=== PATIENT | female | born 1985 | race Caucasian/White ===

== ENCOUNTER 2020-09-11 19:19 | Emergency (ER) | payer SELFPAY ==
[~2020-09-11] VITALS: Ht 162.6 cm; Wt 86.3 kg
[2020-09-11] MEDS ORDERED: FAMO-63 PO (20:01)
[2020-09-11] MEDS ORDERED: TRAM-48 PO (20:13)
--- NOTE | 2020-09-11 20:13 | PHYS DOC ---
General Adult EDM: Chief Complaint: FOOT INJURY PAIN HPI: HPI: Patient is a 34 year old female presents with a chief complaint of left foot and ankle pain. Patient injured her left foot and ankle when she twisted it while walking. Patient denies any other injuries. Patient arrived by private vehicle. She is in no acute distress on exam there is swelling noted along the medial malleolus and the top of the patient's foot. Review of Systems: Review of Systems: Constitutional: Denies fever or chills. [] Eyes: Denies change in visual acuity. [] HENT: Denies nasal congestion or sore throat. [] Respiratory: Denies cough or shortness of breath. [] Cardiovascular: Denies chest pain or edema. [] GI: Denies abdominal pain, nausea, vomiting, bloody stools or diarrhea. [] : Denies dysuria. [] Musculoskeletal: Positive extremity pain Integument: Denies rash. [] Neurologic: Denies headache, focal weakness or sensory changes. [] Endocrine: Denies polyuria or polydipsia. [] Lymphatic: Denies swollen glands. [] Psychiatric: Denies depression or anxiety. [] Heart Score: C/O Chest Pain: N/A Risk Factors: Risk Factors: DM, Current or recent (<one month) smoker, HTN, HLP, family history of CAD, obesity. Risk Scores: Score 0 - 3: 2.5% MACE over next 6 weeks - Discharge Home Score 4 - 6: 20.3% MACE over next 6 weeks - Admit for Clinical Observation Score 7 - 10: 72.7% MACE over next 6 weeks - Early Invasive Strategies Current Medications: Current Medications Medications (Trade) Dose Ordered Sig/[facility] Start Time Stop Time Status Last Admin Dose Admin Ibuprofen (Motrin) 600 mg 1X ONCE 09/11/20 20:30 09/11/20 20:31 Allergies: Allergies: Allergies Coded Allergies Type Severity Reaction Last Updated Verified No Known Drug Allergies 09/11/20 No Physical Exam: PE: General: alert, no acute distress. Skin: warm, dry and intact. Head:: Normocephalic, atraumatic. Neck: Trachea midline. Eyes: EOMI, Normal conjunctiva, No drainage CARDIOVASCULAR: Regular rate and rhythm RESPIRATORY: No respiratory distress Back: Full range of motion. MUSCULOSKELETAL: Full range of motion of bilateral upper and right extremities.--Left ankle swelling along the medial malleolus top of the foot is also swollen. Patient has full range of motion with pain. There is no deformities noted palpable pulses. GASTROINTESTINAL: Abdomen soft without rebound or guarding. NEUROLOGICAL: Alert and noted to person, place and time. No neurological deficits observed Psychiatric: Cooperative. Normal judgment EKG: EKG: [] Radiology/Procedures: Radiology/Procedures: [] Impression: wet read foot and ankle no acute fracture Course & Med Decision Making: Course & Med Decision Making Pertinent Labs and Imaging studies reviewed. (See chart for details) [] Dragon Disclaimer: Dragon Disclaimer: This electronic medical record was generated, in whole or in part, using a voice recognition dictation system. Departure Departure Impression: Primary Impression: Ankle sprain Additional Impression: Foot sprain Disposition: 01 HOME / SELF CARE / HOMELESS Condition: STABLE Referrals: NO PCP (PCP) PHOEBE AWY DO Patient Instructions: Ankle Sprain, Acute, with Phase I Rehab-SportsMed, Foot Sprain Scripts Tramadol Hcl (ULTRAM) 50 Mg Tablet 1 TAB PO PRN Q6HRS PRN for pain MDD 4 Tablet(s) for 7 Days, #20 TAB 0 Refills Prov: IMELDA PATEL DO 09/11/20 IMELDA PATEL DO September 11, 2020 20:13
[2020-09-11] MEDS ORDERED: IBUPROFEN 200 MG TABLET. PO ONE (20:30)
[2020-09-11 21:17] VITALS: BP 118/76
--- NOTE | 2020-09-11 21:18 | RAD ---
XR EXAM OF ANKLE_LEFT 3V, XR FOOT_LEFT 3 VIEWS History: Reason: pain after falling down step / Spl. Instructions: / History: Technique: 3 views left ankle and 3 views left foot Comparison: None. Findings: Normal alignment of the ankle. No fracture. Ankle soft tissue swelling. Tiny plantar calcaneal spur. Normal alignment of the foot. No fracture. Impression: 1. No acute osseous abnormality. 2. Ankle soft tissue swelling. Electronically signed by: Noman Moon DO (09/11/2020 9:15 PM) [facility]
== END 2020-09-11 21:17 | disposition home or self-care (01) ==
LOC: ER 19:19
DX: S93.402A Sprain of unspecified ligament of left ankle, initial encounter (principal); S93.602A Unspecified sprain of left foot, initial encounter; X50.9XXA Other and unspecified overexertion or strenuous movements or postures, initial encounter; Y93.01 Activity, walking, marching and hiking; Y92.89 Other specified places as the place of occurrence of the external cause; Y99.8 Other external cause status
CPT/HCPCS: 73610; 73630; 99284

== ENCOUNTER 2020-10-18 19:54 | Emergency (ER) | payer BC ==
[~2020-10-18] VITALS: Ht 162.6 cm; Wt 90.1 kg
[~2020-10-18 19:54] MED LIST: FAMO-63 PO; TRAM-48 PO
[2020-10-18 20:42] VITALS: BP 137/89
[2020-10-18] MEDS ORDERED: CEPH500T PO (21:17)
[2020-10-18] MEDS ORDERED: BACI3.5O8 TOP (21:17)
[2020-10-18] MEDS ORDERED: HYDR-2761 PO (21:17)
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
[2020-10-18] MEDS ORDERED: DIPH,PERTUSS(ACELL),TET VAC/PF 0.5 ML SYRINGE. VAX IM ONE (22:00)
== END 2020-10-18 21:30 | disposition home or self-care (01) ==
LOC: ER 19:54
DX: T22.211A Burn of second degree of right forearm, initial encounter (principal); K21.9 Gastro-esophageal reflux disease without esophagitis; F17.200 Nicotine dependence, unspecified, uncomplicated; X08.8XXA Exposure to other specified smoke, fire and flames, initial encounter; Y93.89 Activity, other specified; Y92.89 Other specified places as the place of occurrence of the external cause; Y99.8 Other external cause status
CPT/HCPCS: 90471; 90715; 99283-25

== ENCOUNTER 2020-11-27 15:27 | Emergency (ER) | payer BC ==
[~2020-11-27] VITALS: Ht 162.6 cm; Wt 90.0 kg
[~2020-11-27 15:27] MED LIST changes: +BACI3.5O8 TOP; +CEPH500T PO; +HYDR-2761 PO
--- NOTE | 2020-11-27 17:03 | RAD ---
EXAM: CHEST ONE VIEW. HISTORY: Chest pain. COMPARISON: None. FINDINGS: A frontal view of the chest is obtained. There is a small focal infiltrate in the right base. There is no pneumothorax or pleural effusion. Th e heart is not enlarged. IMPRESSION: 1. Focal infiltrate in the right base consistent with pneumonia. Follow-up to resolution is recommend ed. Electronically signed by: Virgil Cool MD (11/27/2020 5:01 PM) [id number]
--- NOTE | 2020-11-27 18:51 | EKG ---
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
[2020-11-27] MEDS ORDERED: LIDOCAINE 1% PF 2 ML VIAL. INJ ONE (19:30)
[2020-11-27] MEDS ORDERED: cefTRIAXone IM 1 GM VIAL IM ONE (19:30)
[2020-11-27] MEDS ORDERED: AMOX1TAB61 PO (19:52)
[2020-11-27] MEDS ORDERED: PRED50TA PO (19:52)
[2020-11-27] MEDS ORDERED: ALBU2.5V8 IH (19:52)
--- NOTE | 2020-11-27 19:52 | PHYS DOC ---
Past Medical History Past Medical History: GERD (MARJKayleenRUBINA Ozzy SCIENCE SPECIALIST) Past Surgical History: Cholecystectomy, Tubal ligation (JESURUBINA Ozzy SCIENCE SPECIALIST) Smoking Status: Current Every Day Smoker Alcohol Use: Occasionally (JESURUBINA Ozzy SCIENCE SPECIALIST) General Adult EDM: Chief Complaint: CHEST PAIN HPI: HPI: Patient is a 35 year old female with history of asthma who presents to the ED today reporting she was diagnosed with COVID-19 on November 22, 2020, she states she has had shortness of breath, cough since 11/21/2020 with chest pressure last week denies any chest pain right or chest pressure. She states she just wants to be checked out to make sure she is okay. (RUBINA NAILS Ozzy SCIENCE SPECIALIST) Review of Systems: Review of Systems: Constitutional: Denies fever or chills. [] Eyes: Denies change in visual acuity. [] HENT: Denies nasal congestion or sore throat. [] Respiratory: Reports cough, denies shortness of breath. [] Cardiovascular: Reports chest pressure, denies chest pressure today, denies chest pain or edema. [] GI: Denies abdominal pain, nausea, vomiting, bloody stools or diarrhea. [] : Denies dysuria. [] Musculoskeletal: Denies back pain or joint pain. [] Integument: Denies rash. [] Neurologic: Denies headache, focal weakness or sensory changes. [] Psychiatric: Denies depression or anxiety. [] (RUBINA NAISL Ozzy SCIENCE SPECIALIST) Heart Score: C/O Chest Pain: N/A Risk Factors: Risk Factors: DM, Current or recent (<one month) smoker, HTN, HLP, family history of CAD, obesity. Risk Scores: Score 0 - 3: 2.5% MACE over next 6 weeks - Discharge Home Score 4 - 6: 20.3% MACE over next 6 weeks - Admit for Clinical Observation Score 7 - 10: 72.7% MACE over next 6 weeks - Early Invasive Strategies (MARJRUBINA Beyer SCIENCE SPECIALIST) Current Medications: Current Medications Medications (Trade) Dose Ordered Sig/[facility] Start Time Stop Time Status Last Admin Dose Admin Ceftriaxone Sodium (Rocephin Im) 1 gm 1X ONCE 11/27/20 19:30 11/27/20 19:31 DC Lidocaine HCl (Xylocaine-Mpf 1% 2ml Vial) 2 ml 1X ONCE 11/27/20 19:30 11/27/20 19:31 DC (RUBINA NAILS SCIENCE SPECIALIST) Allergies: Allergies: Allergies Coded Allergies Type Severity Reaction Last Updated Verified No Known Drug Allergies 09/11/20 No (RUBINA NAILS SCIENCE SPECIALIST) Physical Exam: PE: Constitutional: Well developed, well nourished, no acute distress, non-toxic appearance. [] HENT: Normocephalic, atraumatic, bilateral external ears normal, oropharynx moist, no oral exudates, nose normal. [] Eyes: PERRLA, EOMI, conjunctiva normal, no discharge. [] Neck: Normal range of motion, no tenderness, supple, no stridor. [] Cardiovascular:Heart rate regular rhythm Lungs & Thorax: Diminished posteriorly Abdomen: Bowel sounds normal, soft, no tenderness, no masses, no pulsatile masses. [] Skin: Warm, dry, no erythema, no rash. [] Back: No tenderness, no CVA tenderness. [] Extremities: No tenderness, no cyanosis, no clubbing, ROM intact, no edema. [] Neurologic: Alert and oriented X 3, normal motor function, normal sensory function, no focal deficits noted. [] Psychologic: Affect normal, judgement normal, mood normal. [] (RUBINA NAILS SCIENCE SPECIALIST) Current Patient Data: Vital Signs: Vital Signs Date Time Temp Pulse Resp B/P (MAP) Pulse Ox O2 Delivery O2 Flow Rate FiO2 11/27/20 16:38 98.6 68 22 110/70 96 Room Air 98.6 (RUBINA NAILS SCIENCE SPECIALIST) EKG: EK interpreted by Sinus Rhythm Heart Rate 58 No STEMI [] (RUBINA NAILS Ozzy SCIENCE SPECIALIST) Radiology/Procedures: Radiology/Procedures: []PROCEDURE: CHEST AP ONLY EXAM: CHEST ONE VIEW. HISTORY: Chest pain. COMPARISON: None. FINDINGS: A frontal view of the chest is obtained. There is a small focal infiltrate in the right base. There is no pneumothorax or pleural effusion. The heart is not enlarged. IMPRESSION: 1. Focal infiltrate in the right base consistent with pneumonia. Follow-up to resolution is recommended. Electronically signed by: Virgil Cool MD (11/27/2020 5:01 PM) [id number] DICTATED and SIGNED BY: WAYNE COOL MD DATE: 11/27/20 [id number] (RUBINA NAILS APRN) Course & Med Decision Making: Course & Med Decision Making Pertinent Labs and Imaging studies reviewed. (See chart for details) This is a well-appearing nontoxic 35-year-old female patient presented to the ED today to be checked out after being diagnosed with COVID-19 on November 22, 2020. Patient denies any chest pain or shortness of breath today. EKG interpreted by Dr. Harden is negative for STEMI, chest x-ray interpreted by radiologist was noted for was noted for right lower lobe pneumonia. Discharged on Augmentin. Prescription for albuterol inhaler also provided for her asthma. Vitals in the ED temperature 98.6, heart rate 68, respiration 22, blood pressure 110/70, O2 sats 96 to 98% on room air. Provided return precautions and discharged with instructions to follow-up with the PCP (RUBINA NAILS APRN) Course & Med Decision Making I have participated in the care of this patient and I have reviewed and agree with all pertinent clinical information above including history, exam, and recommendations. Kiya Harden DO (KIYA HARDEN DO) Eduardo Disclaimer: Eduardo Disclaimer: This electronic medical record was generated, in whole or in part, using a voice recognition dictation system. (RUBINA NAILS APRN) Departure Departure Impression: Primary Impression: Right lower lobe pneumonia Qualified Codes: J18.9 - Pneumonia, unspecified organism Additional Impression: Lab test positive for detection of COVID-19 virus Disposition: HOME / SELF CARE / HOMELESS Condition: STABLE Referrals: NO PCP (PCP) follow up with your doctor next week Patient Instructions: Pneumonia, Adult, [id number] Additional Instructions: You were evaluated in the emergency room, you are positive for Covid and also have pneumonia to your right lung. We highly recommend you quarantine yourself for 10 days from the date you were diagnosed with Covid. Maintain good hand hygiene. Wear your mask if you are around other people. Take the prescribed antibiotics until completed. Please follow-up with your doctor next week. Come back to the ED at any point symptoms worsen Scripts Albuterol Sulfate (PROAIR HFA INHALER) 8.5 Gm Hfa.aer.ad 2 PUFF IH PRN Q4-6HRS PRN for wheezing for 21 Days, #1 INHALER 0 Refills Prov: RUBINA NAILS APRN 11/27/20 Prednisone (PREDNISONE) 50 Mg Tablet 1 TAB PO DAILY, #5 TAB Prov: RUBINA NAILS APRN 11/27/20 Amoxicillin/Potassium Clav (AUGMENTIN 875-125 TABLET) 1 Each Tablet 1 TAB PO BID for 10 Days, #20 TAB 0 Refills Prov: RUBINA NAILS APRN 11/27/20 RUBINA NAILS APRN Nov 27, 2020 19:52 KIYA HARDEN DO Nov 27, 2020 23:38
[2020-11-27 19:53] VITALS: BP 131/84
== END 2020-11-27 20:37 | disposition home or self-care (01) ==
LOC: ER 15:27
DX: J18.9 Pneumonia, unspecified organism (principal); J45.909 Unspecified asthma, uncomplicated; K21.9 Gastro-esophageal reflux disease without esophagitis; F17.200 Nicotine dependence, unspecified, uncomplicated
CPT/HCPCS: 71045; 93005; 96372; 99283; J0696; J3490; 99284

== ENCOUNTER 2020-12-14 20:38 | Emergency (ER) | payer BC ==
[~2020-12-14] VITALS: Ht 162.6 cm; Wt 93.0 kg
[~2020-12-14 20:38] MED LIST changes: +ALBU2.5V8 IH; +AMOX1TAB61 PO; +PRED50TA PO
[2020-12-14 21:52] LABS: BASO # 0.1 x10^3/uL (0.0-0.2); BASO % 1 % (0-3); EOS # 0.2 x10^3/uL (0.0-0.7); EOS % 2 % (0-3); HEMATOCRIT 40.4 % (36.0-47.0); HEMOGLOBIN 13.6 g/dL (12.0-15.5); LYMPH # 2.7 x10^3/uL (1.0-4.8); LYMPH % 26 % (24-48); MEAN CORPUSCULAR HEMOGLOBIN 28 pg (25-35); MEAN CORPUSCULAR HGB CONC 34 g/dL (31-37); MEAN CORPUSCULAR VOLUME 84 fL (79-100); MONO # 0.5 x10^3/uL (0.0-1.1); MONO % 5 % (0-9); NEUT % 67 % (31-73); PLATELET COUNT 270 x10^3/uL (140-400); RED BLOOD COUNT 4.81 x10^6/uL (3.50-5.40); RED CELL DISTRIBUTION WIDTH 13.6 % (11.5-14.5); WHITE BLOOD COUNT 10.5 x10^3/uL (4.0-11.0)
--- NOTE | 2020-12-14 21:57 | PHYS DOC ---
Past Medical History Past Medical History: Asthma, GERD Additional Past Medical Histor: covid in November 2020 Past Surgical History: Cholecystectomy, Tubal ligation Smoking Status: Current Every Day Smoker Alcohol Use: Rarely General Adult EDM: Chief Complaint: Cough, chest tightness, diagnosed with Covid several weeks ago HPI: HPI: 35-year-old female with a history of asthma and active smoking, says that she was diagnosed with COVID-19 about 2 to 3 weeks ago, patient presents to the emergency department complaining of about 1 day of chest tightness, persistent coughing, wheezing, denies any chills but complains still of some fevers, sore throat, denies any loss of taste or smell, no headache or neck stiffness/photophobia, she says symptoms are nonexertional, worse with coughing, no leg pain or leg swelling, no known history of cardiac disease or history of thromboembolism. She takes Advair and albuterol as needed, unfortunate the patient was not vaccinated to COVID-19 Review of Systems: Review of Systems: General: Positive for fevers, body aches, no chills Eyes: no blurred vision, no diplopia Skin: no rashes Neck: no swelling, no neck stiffness, no neck pain Heme: no bleeding, no lymph node enlargement Ear/Nose/Throat: + sore throat, no runny nose, no hearing loss, no difficulty swallowing Cardiovascular: + Chest pain, no palpitations Respiratory: + dyspnea, + cough, no hemoptysis Gastrointestinal: No abdominal pain, no nausea, no vomiting, no diarrhea, no blood in stool Genitourinary: no dysuria, no hematuria Musculoskeletal: no back pain, no leg pain, no arm pain, no arthralgia Neurologic: no headaches, no dizziness, no focal numbness/tingling, no focal weakness Psych: no depression, no anxiety, no SI/HI *All review of systems are negative other than what is noted above Heart Score: C/O Chest Pain: Yes HEART Score for Chest Pain: HEART Score for Chest Pain Response (Comments) Value History Slighlty/Non-Suspicious 0 ECG Normal 0 Age < 45 0 Risk Factors No Risk Factors 0 Troponin < Normal Limit 0 Total 0 Risk Factors: Risk Factors: DM, Current or recent (<one month) smoker, HTN, HLP, family history of CAD, obesity. Risk Scores: Score 0 - 3: 2.5% MACE over next 6 weeks - Discharge Home Score 4 - 6: 20.3% MACE over next 6 weeks - Admit for Clinical Observation Score 7 - 10: 72.7% MACE over next 6 weeks - Early Invasive Strategies Allergies: Allergies: Allergies Coded Allergies Type Severity Reaction Last Updated Verified No Known Drug Allergies 09/11/20 No Physical Exam: PE: Gen-well appearing, no acute distress Head: Normocephalic/Atraumatic ENT: atraumatic, PERRLA, EOMI, oropharynx erythematous but no masses or exudates Neck: supple, full ROM/strength, no JVD, no nuchal rigidity Lungs: no distress, speaks in full sentences, Clear to auscultation bilaterally, there is precordial tenderness CV: reg rate, rhythm, no murmus/rubs/gallops, peripheral pulses equal in all extremities Abdomen: soft/nontender, no guarding/rebound tenderness, no rigidity, non distended, normoactive bowel sounds Musculoskeletal: full ROM/strength in all extremities, atraumatic, no swelling Back: full range of motion/strength Skin: intact, no rashes Lymph: no gross YUN Neuro: alert and oriented x 4, CN 2-12 grossly intact, Motor strength is 5/5 in all extremities, no focal sensory deficits, no focal ataxia, ambulatory with steady gait Psych: normal mood/affect Current Patient Data: Vital Signs: Vital Signs Date Time Temp Pulse Resp B/P (MAP) Pulse Ox O2 Delivery O2 Flow Rate FiO2 12/14/20 20:45 98.9 83 24 120/79 (100) 98 Room Air 98.9 EKG: EKG: [] Patient's twelve-lead EKG was performed at 8:47 PM: Normal sinus rhythm, rate is 79, I believe this is a normal and nonischemic appearing EKG with normal axis and intervals Radiology/Procedures: Radiology/Procedures: [] Course & Med Decision Making: Course & Med Decision Making Pertinent Labs and Imaging studies reviewed. (See chart for details) 35-year-old female presented to the emergency department complaining of atypical chest pain in the setting of flulike symptoms, the patient was Covid positive about 3 weeks ago, per differential diagnosis includes but not limited to costochondritis, pneumonia, symptoms of COVID-19 infection, unlikely ACS, PE, dissection, pneumothorax, no known risk factors for cardiac disease, the patient is PERC negative but we are seeing some cases of thromboembolism in the setting of Covid infection, for that reason I will check labs including cardiac biomarkers, chest x-ray, D-dimer level to rule out a PE in this otherwise low risk patient, in the meantime we will give her some dexamethasone, will reevaluate examine her during her work-up in the ER and determine the best course of action as we get more data available [] Reevaluation 12:54 AM: The patient is feeling better and her work-up is negative, negative dimer, negative x-ray, I believe she is stable for discharge at this time Patient was seen in the ED for cough and atypical chest pain in the setting of known COVID-19 infection, her work-up was negative and her symptoms improved in the ER, there is no apparent evidence of any emergency medical pathology at this time, patient was advised follow-up with their primary care provider /physician in the next 24-48 hours and to return to the ED before then if any new or worsening / concerning symptoms had developed. All questions and concerns were addressed at time of disposition Eduardo Disclaimer: Eduardo Disclaimer: This electronic medical record was generated, in whole or in part, using a voice recognition dictation system. Departure Departure Impression: Primary Impression: Cough Disposition: 01 HOME / SELF CARE / HOMELESS Condition: IMPROVED Referrals: NO PCP (PCP) BINU SALINAS MD Patient Instructions: Chest Pain (Nonspecific) Additional Instructions: The test here were okay, you do not have pneumonia which is good news, I believe that your symptoms are from persistent Covid infection so I am starting you on some steroids and some light pain medicine, I want you to follow-up with a primary care doctor, if you do not have one I recommend following up with Dr. Cody Salinas in the next 48 hours, return to the nearest emergency room before then if any new or worsening/concerning symptoms develop Scripts Naproxen (NAPROSYN) 500 Mg Tablet 500 MG PO BID PRN for PAIN, #20 TAB Prov: ISAAC VALLECILLO MD 12/15/20 Methylprednisolone (MEDROL) 4 Mg Tab.ds.pk 1 PKG PO UD for inflammation, #1 PKG Prov: ISAAC VALLECILLO MD 12/15/20 ISAAC VALLECILLO MD Dec 14, 2020 21:57
--- NOTE | 2020-12-14 22:01 | EKG ---
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
[2020-12-14 22:07] LABS: CALCIUM 8.9 mg/dL (8.5-10.1); CREATININE 0.9 mg/dL (0.6-1.0); GFR 70.8; POTASSIUM 4.4 mmol/L (3.5-5.1)
[2020-12-14 22:21] LABS: ALBUMIN 3.1 g/dL (3.4-5.0); ALBUMIN/GLOBULIN RATIO 1.1 (1.0-1.7); TOTAL BILIRUBIN 0.2 mg/dL (0.2-1.0); TOTAL PROTEIN 5.9 g/dL (6.4-8.2)
[2020-12-14] MEDS ORDERED: DEXAMETHASONE SOD PHOS 4 MG/ML VIAL IVP ONE (22:30)
--- NOTE | 2020-12-14 22:37 | RAD ---
XR CHEST 1V INDICATION: cp . COMPARISON STUDY: 11/27/2020. FINDINGS: Lungs: Normal lung volume. Right basilar opacity has resolved. No new consolidation. The tracheobronc hial tree and hilar structures are normal. Pleura: No pleural effusion or pneumothorax. Heart and Mediastinum: The cardiomediastinal silhouette is normal. The great vessels of the thorax ar e normal. Bones and Soft Tissues: The bones and soft tissues are within normal limits. IMPRESSION: Right basilar opacity has resolved. No new consolidation Electronically signed by: Fortino Quinteros MD (12/14/2020 10:34 PM) [facility]
[2020-12-15] MEDS ORDERED: NAPR-683 PO (00:56)
[2020-12-15] MEDS ORDERED: METH4TAB2 PO (00:56)
[2020-12-15 01:00] VITALS: BP 107/75
== END 2020-12-15 01:38 | disposition home or self-care (01) ==
LOC: ER 20:38
DX: R05 Cough (principal); R07.89 Other chest pain; R06.2 Wheezing; J45.909 Unspecified asthma, uncomplicated; K21.9 Gastro-esophageal reflux disease without esophagitis; F17.200 Nicotine dependence, unspecified, uncomplicated; Z20.822 Contact with and (suspected) exposure to COVID-19
CPT/HCPCS: 36415; 71045; 80053; 81025; 83880; 84484; 85025; 85379; 87426; 93005; 96374; 99285; J1100